=== PATIENT | female | born 1975 | race American Indian/Alaskan Native ===

== ENCOUNTER 2016-06-22 10:18 | Outpatient (CLI) | payer OTHER ==
--- NOTE | 2016-06-23 16:55 | Mammography Report ---
BILATERAL DIGITAL SCREENING MAMMOGRAM WITH CAD:06/22/16 CLINICAL: Baseline screening. FINDINGS: The breasts are heterogeneously dense, which may obscure small masses and limit the sensitivity of mammography.No mass, architectural distortion or suspicious calcifications. IMPRESSION: No mammographic evidence of malignancy. BI-RADS CATEGORY: 1 -- Negative RECOMMENDATION: Routine mammographic screening in one year. ACR BI-RADS MAMMOGRAPHIC CODES: 0 = Needs additional imaging evaluation; 1 = Negative; 2 = Benign; 3 = Probably benign; 4 = Suspicious; 5 = Malignant; 6 = Known biopsy-proven malignancy COMMENT: 1. Dense breast tissue, i.e., adenosis, fibrocystic changes, etc., may obscure an underlying neoplasm. 2. Approximately 10% of cancers are not detected with mammography. 3. A negative mammography report should not delay biopsy if a clinically suspicious mass is present.
== END 2016-06-22 10:19 | disposition home or self-care (01) ==
LOC: SPVWC 10:18
PROVIDERS: ATTEND Family Medicine
DX: Z12.31 Encounter for screening mammogram for malignant neoplasm of breast (principal)
CPT/HCPCS: 77067; G0202

== ENCOUNTER 2020-11-04 07:30 | Inpatient (IN) | payer OTHER, MEDICAID ==
[2020-11-12] MEDS ORDERED: METOCLOPRAMIDE 10 MG/2 ML INJ IV ONE (01:54)
[2020-11-12] MEDS ORDERED: FAMOTIDINE 20 MG/2 ML INJ IV ONE ×2 (01:54→07:20)
[2020-11-12] MEDS ORDERED: BICITRA ORAL LIQD 30ML PO ONE (01:54)
[2020-11-12] MEDS ORDERED: LACTATED RINGERS 1,000 ML IV SCH (02:00)
[2020-11-12] MEDS ORDERED: OXYTOCIN DRIP 30 UNITS/500 ML BAG IV SCH ×2 (03:00→11:26)
[2020-11-12] MEDS ORDERED: ceFAZolin/Water 2 GM/20 ML 2 GM/20 ML SYRINGE IV NR (03:00)
[2020-11-12] MEDS ORDERED: LACTATED RINGERS 1,000 ML ONE (06:39)
[2020-11-12 06:46] LABS: Basophils % (Auto) 0.5 % (0.0-1.8); Eosinophils % (Auto) 0.3 % (0.0-4.3); Hemoglobin 11.5 gm/dl (10.1-14.3); Lymphocytes % (Auto) 20.1 % (13.4-35.0); Mean Corpuscular HGB Conc 32 % (30-34); Mean Corpuscular Volume 79 fl (79-97); Monocytes # (Auto) 0.9 K/mm3 (0.0-0.8); Monocytes % (Auto) 8.6 % (0.0-7.3); Platelet Count 222 K/mm3 (140-440); Red Blood Count 4.53 M/mm3 (3.65-5.03); Red Cell Distribution Width 16.2 % (13.2-15.2)
--- NOTE | 2020-11-12 07:15 | Anesthesia Day of Surgery ---
Anesthesia Day of Surgery - Day of Surgery Patient Examined: Yes Patient H&P Reviewed: Yes Patient is NPO: Yes Beta Blockers: No Cardiac Clearance: No Pulmonary Clearance: No Osbaldo's Test: N/A
[2020-11-12] MEDS ORDERED: ONDANSETRON 4 MG/2 ML INJ IV PRN (07:18)
[2020-11-12] MEDS ORDERED: NALOXONE 0.4 MG/1 ML INJ IV PRN ×2 (07:18→11:26)
[2020-11-12] MEDS ORDERED: HYDROmorphone 1 MG/1 ML INJ IV PRN (07:18)
--- NOTE | 2020-11-12 07:18 | Anesthesia Consultation ---
Anesthesia Consult and Med Hx Date of service: 11/12/20 - Airway Anesthetic Teeth Evaluation: Good ROM Head & Neck: Adequate Mental/Hyoid Distance: Adequate Mallampati Class: Class III Intubation Access Assessment: Good - Pulmonary Exam CTA: Yes - Cardiac Exam Cardiac Exam: RRR - Pre-Operative Health Status ASA Pre-Surgery Classification: ASA3 Proposed Anesthetic Plan: Spinal - Pre-Anesthesia Comment Pre-Anesthesia Comments: C/S X 2, NO ANESTHESIA COMPLICATIONS - Pulmonary Hx Smoking: No Hx Asthma: No Hx Respiratory Symptoms: No SOB: No COPD: No Home Oxygen Therapy: No Hx Pneumonia: No Hx Sleep Apnea: No - Cardiovascular System Hx Hypertension: No Hx Coronary Artery Disease: No Hx Heart Attack/AMI: No Hx Angina: No Hx Percutaneous Transluminal Coronary Angioplasty (PTCA): No Hx Cardia Arrhythmia: No Hx Pacemaker: No Hx Internal Defibrillator: No Hx Valvular Heart Disease: No Hx Heart Murmur: No Hx Peripheral Vascular Disease: No - Central Nervous System Hx Neuromuscular Disorder: Yes (Migraine treated with Motrin PRN) Hx Seizures: No CVA: No Hx Back Pain: No Hx Psychiatric Problems: No - Gastrointestinal Hx Ulcer: No Hx Gastroesophageal Reflux Disease: Yes - Endocrine Hx Renal Disease: No Hx End Stage Renal Disease: No Hx Cirrhosis: No Hx Liver Disease: No Hx Insulin Dependent Diabetes: No Hx Non-Insulin Dependent Diabetes: No Hx Thyroid Disease: No Hx Hypothyroidism: No Hx Hyperthyroidism: No - Hematic Hx Anemia: No Hx Sickle Cell Disease: No - Other Systems Hx Alcohol Use: No Hx Substance Use: No Hx Cancer: No Hx Obesity: Yes
[2020-11-12] MEDS ORDERED: BICITRA ORAL LIQD 30ML ONE (07:19)
[2020-11-12] MEDS ORDERED: METOCLOPRAMIDE 10 MG/2 ML INJ ONE (07:20)
[2020-11-12] MEDS ORDERED: BUPIVACAINE /DEX-WATER 0.75% (2 ML) AMPULE INFILTRATI ONE (07:24)
[2020-11-12] MEDS ORDERED: ONDANSETRON 4 MG/2 ML INJ ONE (08:00)
[2020-11-12] MEDS ORDERED: PHENYLEPHRINE/NS 1,000 MCG/10 ML SYRINGE (OR USE) IV ONE (08:00)
[2020-11-12] MEDS ORDERED: SODIUM CHLORIDE 0.9% IRR 1,500 ML BOTTLE IR ONE (08:04)
[2020-11-12] MEDS ORDERED: WATER FOR IRRIG STERILE 1,500 ML BOTTLE IR ONE (08:04)
[2020-11-12] MEDS ORDERED: ceFAZolin/STERILE WATER 2 GM/20 ML SYRINGE IV ONE ×2 (08:04→08:18)
[2020-11-12] MEDS ORDERED: BUPIVACAINE/PF (0.25%) 2.5 MG/ML 30 ML VIAL INFILTRATI ONE ×2 (08:51)
--- NOTE | 2020-11-12 09:45 | Operative Report ---
Operative Report Operative Report: Preoperative diagnosis: Intrauterine at 39 weeks 2. Previous x 2 3. Multiple uterine fibroids 4. Undesired fertility Postoperative diagnosis: Same with Procedure: Repeat low transverse section, Bilateral tubal ligation Surgeon: Dr. Sabi Ventura EBL: 700cc Urine output: 200 mL IV fluids: mL Findings: Viable male in the vertex Weight 7 lbs. 1 oz. 3682 g Apgars 8 and 9. Otherwise normal pelvic anatomy Specimens: Portion of right and left fallopian tube Complications: None Procedure: The patient was admitted to the OR with IV running and in place. She was properly identified as herself. She was given spinal anesthesia in the OR without difficulty. She was placed in the dorsal supine position with a leftward tilt. A Barber catheter was inserted. She was then prepped and draped in the normal sterile fashion. An Allis test was used to confirm adequate anesthesia. Once confirmed, the incision was made with the scalpel and carried to the underlying fascia using the scalpel and the Bovie. The fascia was incised in the midline and incision was extended bilaterally using the curved Avila scissors. The fascia was then dissected from the underlying rectus muscles in a series of sharp and blunt dissection using the Avila scissors. Muscles were in the in the midline sharply using Metzenbaum scissors and the peritoneum was entered into bluntly using the surgeon's fingers. A bladder blade was then placed into the incision to protect the bladder. Following this the bladder flap was created. Hysterotomy incision was then made in the scalpel. Upon uterine entry, the amniotic sac was ruptured for clear fluid. The was then delivered without difficulty.. His mouth and nose were suctioned on the field. The cord was clamped and cut and he was handed to the waiting NICU personnel. The uterus was then exteriorized and cleared of all clots and debris. The hysterotomy incision was then closed in a running locked fashion using 0 Vicryl. The abdomen was then copiously irrigated with warm normal saline. Attention was turned the the fallopian tubes. Each tube was identified and followed out the the fimbriated end. Each tube was grasped in the midportion and ligated in the [place] style Tubal ligation. Following this the uterus was replaced into the abdominal cavity. At this point the muscles were reapproximated in the midline using individual sutures of 0 Vicryl. Following this the fascia was closed in a running fashion using 0 Vicryl. Tissue was then copiously irrigated. Retention sutures were placed in the subcutaneous fat tissue Skin was closed in a running fashion using 3-0 Monocryl. The sponge lap needle and instrument counts were correct 2. The patient tolerated the procedure well. She was taken to recovery in stable condition.
--- NOTE | 2020-11-12 09:45 | History and Physical Report ---
History of Present Illness Date of examination: 11/12/20 Date of admission: 11/12/20 05:42 Chief complaint: I am here for my History of present illness: Patient is a 45-year-old 4 para 2 who presents for elective repeat section at term. Her course has been complicated by advanced maternal age and multiple uterine fibroids. Also requesting a tubal ligation. All labs have been normal to this point. She is GBS negative. Past History Past Medical History: no pertinent history Past Surgical History: section Social history: - Obstetrical History Expected Date of Delivery: 12/03/20 Actual Gestation: 40 Week(s) 1 Day(s) : 3 Number of Living Children: 2 Medications and Allergies Allergies Allergy/AdvReac Type Severity Reaction Status Date / Time No Known Allergies Allergy Unverified 11/12/20 06:36 Home Medications Medication Instructions Recorded Confirmed Last Taken Type Docusate Sodium [Colace] 100 mg PO BID #60 capsule 11/12/20 Unknown Rx Ibuprofen [Motrin] 800 mg PO Q8HR PRN #40 tablet 11/12/20 Unknown Rx oxyCODONE /ACETAMINOPHEN [Percocet 2 tab PO Q6HR PRN #40 tablet 11/12/20 Unknown Rx 5/325] Active Meds: Active Medications Hydromorphone HCl (Hydromorphone 1 Mg/1 Ml Inj) 0.5 mg IV Q5M PRN PRN Reason: BREAK Stop: 11/12/20 23:00 Lactated Ringer's (Lactated Ringers) 1,000 mls @ 2,250 mls/hr IV PREOP CANDIDO Stop: 11/13/20 02:27 Last Admin: 11/12/20 07:23 Dose: 2,250 mls/hr Documented by: Oxytocin/Sodium Chloride (Pitocin/Ns 30 Unit/500ml) 30 units in 500 mls @ 0 mls/hr IV TITR CANDIDO; Protocol Cefazolin Sodium (Ancef/Sterile Water 2 Gm/20 Ml) 2 gm in 20 mls @ 80 mls/hr IV PREOP NR; Protocol Stop: 11/12/20 23:45 Naloxone HCl (Naloxone 0.4 Mg/1 Ml Inj) 0.2 mg IV Q2MIN PRN PRN Reason: Res Rate </= 8 or 02 SAT < 92% Ondansetron HCl (Ondansetron 4 Mg/2 Ml Inj) 4 mg IV Q8H PRN PRN Reason: Nausea And Vomiting Review of Systems All systems: negative Gastrointestinal: abdominal pain - Vital Signs Vital signs: Vital Signs Temp Pulse Resp BP Pulse Ox 98.4 F 87 16 122/73 100 11/12/20 06:44 11/12/20 06:44 11/12/20 06:44 11/12/20 06:44 11/12/20 06:44 Temp Pulse Resp BP Pulse Ox 98.4 F 90 16 122/73 100 11/12/20 06:44 11/12/20 07:45 11/12/20 06:44 11/12/20 06:49 11/12/20 07:45 - Physical Exam Breasts: Positive: deferred Cardiovascular: Regular rate, Normal S1, Normal S2 Lungs: Positive: Clear to auscultation, Normal air movement Abdomen: Positive: normal appearance, soft, normal bowel sounds. Negative: distention, tenderness Genitourinary (Female): Positive: normal external genitalia, normal perenium Vulva: both: normal Vagina: Positive: normal moisture. Negative: discharge Cervix: Negative: lesion, discharge Uterus: Positive: normal size, enlarged, nodular Adnexa: both: normal Anus/Rectum: Positive: normal perianal skin, heme negative. Negative: rectal mass, hemorrhoids Extremities: Deep Tendon Reflex Grade: Normal +2 - Obstetrical FHR: auscultation normal Results Result Diagrams: 11/12/20 23:34 Abnormal lab results 11/12/20 Range/Units 06:28 MCH 25 L (28-32) pg RDW 16.2 H (13.2-15.2) % [place] % (Auto) 8.6 H (0.0-7.3) % [place] # (Auto) 0.9 H (0.0-0.8) K/mm3 Seg Neutrophils % 70.5 H (40.0-70.0) % All other labs normal. Assessment and Plan IUP at 38 weeks here for elective repeat and tubal ligation. All consents have been signed and placed on the chart. Proceed with surgery as planned.
--- NOTE | 2020-11-12 09:46 | Procedure Note ---
OB Delivery Note - Delivery Date of Delivery: 11/12/20 Surgeon: JOHN LEW Estimated blood loss: other (600) - Section Preop diagnosis: repeat , desires sterilization Postop diagnosis: same (With multiple uterine fibroids) section procedure: section, repeat low transverse, bilateral tubal ligation Disposition: PACU Complications: none Narrative: See op report - Infant A at 1 minute: 8 at 5 minutes: 9 Infant Gender: Male (7 pounds 6 ounces)
[2020-11-12] MEDS ORDERED: METHYLERGONOVINE MALEATE 0.2 MG/ML VIAL IM SCH (10:00)
[2020-11-12] MEDS ORDERED: METHYLERGONOVINE MALEATE 0.2 MG/ML VIAL IM ONE (10:11)
[2020-11-12] MEDS ORDERED: WITCH HAZEL/ GLYCERIN PAD TP PRN (11:26)
[2020-11-12] MEDS ORDERED: LANOLIN/ZINC/DIMETHICONE (LANSINOH) 7 GM TP PRN (11:26)
[2020-11-12] MEDS ORDERED: D5W/LACTATED RINGERS 1,000 ML IV SCH (11:26)
[2020-11-12] MEDS: MORPHINE 4 MG/1 ML INJ IV PRN ×2 (13:10→20:10)
[2020-11-12] MEDS: FERROUS SULFATE 325 MG TAB PO SCH (13:11)
--- NOTE | 2020-11-12 16:30 | Progress Note ---
Spinal Anesthesia Block - Spinal Anesthesia Block Start Time: 08:00 Stop Time: 08:04 Performed by:: RUDY CONTRERAS Procedure: Patient IDed, H&P reviewed, all questions and concerns were answered, and consent was signed. Timeout was performed at bedside. Patient in sitting position. Sterile prep and drape was performed. [3] ml of 1% lidocaine skin wheal at L[3]- L [4]. Needle introducer advanced. 25 gauge spinal needle advanced. Clear, free flowing CSF. negative blood, negative paresthesia. Spinal dose given. All needles removed. Patient tolerated procedure.
--- NOTE | 2020-11-12 16:33 | Progress Note ---
Regional Anesthesia Block - Regional Anesthesia Block Start Time: 08:50 Stop Time: 08:58 Performed By:: RUDY CONTRERAS Procedure: Patient consented for TAP block for post surgical pain management. Patient identified, monitors placed, and time out performed. TAP identified bilaterally via ultrasound. Skin prepped bilaterally with [chlorhexidine] and [22g stimuplex] needle advanced to the TAP. [Marcaine 0.22% 20ml] injected under ultrasound guidance on the [left] side. [Marcaine 0.22% 20ml] injected under ultrasound guidance on the [right] side. Negative aspiration every 5mL, No change in heart rate or rhythm. Patient tolerated the procedure well. No apparent complications seen
--- NOTE | 2020-11-12 16:46 | Post Anesthesia Evaluation ---
- Post Anesthesia Evaluation Patient Participated: Yes Airway Patent: Yes Stable Respiratory Function: Yes Nausea/Vomiting: No Temp > 96.8F: Yes Pain Manageable: Yes Adequeate Hydration: Yes Anesthesia Complications: No Block Receding Appropriately: Yes Patient on Ventilator: No
[2020-11-12] MEDS: IBUPROFEN 800 MG TAB PO PRN (23:43)
[2020-11-12 23:45] LABS: Hematocrit 31.1 % (30.3-42.9); Hemoglobin 10.1 gm/dl (10.1-14.3)
[2020-11-13] MEDS: IBUPROFEN 800 MG TAB PO PRN ×2 (05:11→11:50)
[2020-11-13] MEDS: oxyCODONE /ACETAMINOPHEN 5-325MG TAB PO PRN ×2 (09:25→18:07)
[2020-11-13] MEDS: FERROUS SULFATE 325 MG TAB PO SCH (11:51)
--- NOTE | 2020-11-13 17:11 | Progress Note ---
Assessment and Plan POD 1 /p rltcs. Doing well. Continue routine care. Encourage ambulation. Subjective - Subjective Date of service: 11/13/20 Interval history: POD 1 s/p ltcs and btl. DOing well. Patient reports: appetite normal, voiding normally, pain well controlled, ambulating normally : doing well Objective - Vital Signs Latest vital signs: Vital Signs Temp Pulse Resp BP BP Pulse Ox 11/13/20 08:00 98.2 F 83 14 119/65 11/13/20 05:07 98.5 F 92 H 20 118/67 96 11/13/20 01:05 98.7 F 100 H 18 136/80 96 11/12/20 21:10 99.1 F 92 H 18 132/78 97 Intake and Output 11/13/20 11/13/20 11/13/20 06:59 14:59 22:59 Intake Total 120 Output Total 400 Balance -280 Intake: Oral 120 Output: Urine 400 Void 400 Other: Total, Intake Amount 120 Total, Output Amount 400 # Voids Void 1 - Exam Breasts: Present: deferred Cardiovascular: Present: Regular rate, Normal S1, Normal S2 Lungs: Present: Clear to auscultation, Normal air movement Abdomen: Present: normal appearance, soft, normal bowel sounds Uterus: Present: normal, firm, fundal height above umbilicus (fibroid uterus) Extremities: Present: normal
[2020-11-14] MEDS: oxyCODONE /ACETAMINOPHEN 5-325MG TAB PO PRN ×3 (02:49→17:14)
[2020-11-14] MEDS: FERROUS SULFATE 325 MG TAB PO SCH (10:24)
--- NOTE | 2020-11-14 11:16 | Progress Note ---
Assessment and Plan A: POD#2 s/p repeat and tubal ligation at term Delayed return of bowel function AMA P: Begin bowel regimen Closely monitor clinical status Subjective - Subjective Date of service: 11/14/20 Principal diagnosis: s/p repeat and BTL at term, Interval history: Pt passing minimal flatus and reports pain presently. Patient reports: appetite normal, voiding normally, flatus (minimal ), pain poorly controlled, ambulating normally, no bowel movement : doing well Objective - Vital Signs Latest vital signs: Vital Signs Temp Pulse Resp BP BP Pulse Ox 11/14/20 07:25 97.8 F 85 18 141/77 98 11/14/20 02:49 18 11/14/20 01:13 97.9 F 98 H 20 131/70 97 Intake and Output 11/13/20 11/14/20 11/14/20 22:59 06:59 14:59 Intake Total 200 480 Balance 200 480 Intake: Oral 200 120 Intake, Free Water 360 Other: Total, Intake Amount 200 120 # Voids Void 2 1 - Exam Breasts: Present: deferred Abdomen: Present: soft, distention (moderate; tympanic ) Uterus: Present: fundal height at umbilicus Extremities: Present: edema (trace ) Incision: Present: intact (with felice )
[2020-11-14] MEDS: LACTULOSE 20 GM/30 ML ORAL LIQD PO SCH ×2 (12:44→21:48)
[2020-11-15] MEDS: oxyCODONE /ACETAMINOPHEN 5-325MG TAB PO PRN ×2 (00:47→06:27)
[2020-11-15] MEDS: LACTULOSE 20 GM/30 ML ORAL LIQD PO SCH (06:19)
[2020-11-15] MEDS: FERROUS SULFATE 325 MG TAB PO SCH (09:05)
[2020-11-15 09:53] VITALS: BP 124/64
--- NOTE | 2020-11-15 11:55 | Progress Note ---
Assessment and Plan A: POD#3 s/p repeat and tubal ligation at term AMA P: Routine postop care Discharge today with follow up in 1 week for staple removal Subjective - Subjective Date of service: 11/15/20 Principal diagnosis: s/p repeat and BTL at term, Interval history: Pt feels much better, is passing more flatus and asks to go home. She notes that after her last section, she did not have a bowel m ovement until she went home 4 days after surgery. Patient reports: appetite normal, voiding normally, pain well controlled, flatus, ambulating normally, no bowel movement : doing well Objective - Vital Signs Latest vital signs: Vital Signs Temp Pulse Resp BP BP Pulse Ox 11/15/20 09:00 97.8 F 84 18 124/64 98 11/15/20 06:27 18 11/15/20 01:18 98.6 F 74 20 137/75 100 11/15/20 00:47 18 11/14/20 17:00 97.9 F 92 H 18 137/76 99 Intake and Output 11/14/20 11/15/20 11/15/20 22:59 06:59 14:59 Intake Total 200 560 Balance 200 560 Intake: Oral 200 200 Intake, Free Water 360 Other: Total, Intake Amount 200 200 # Voids Void 3 1 # Bowel Movements 1 - Exam Breasts: Present: deferred Abdomen: Present: soft (obese ), distention (mild ) Uterus: Present: fundal height at umbilicus Extremities: Present: edema (trace ) Incision: Present: intact (with felice )
--- NOTE | 2020-11-15 11:55 | Discharge Summary ---
Providers - Providers Date of Admission: 11/12/20 05:42 Date of discharge: 11/15/20 Attending physician: JOHN LEW Primary care physician: JOHN LEW Hospitalization Reason for admission: section Delivery: Procedure: section, bilateral tubal ligation, repeat low transverse Procedure details: Please see operative report Episiotomy: none Laceration: none Incision: intact (with felice ) Other procedures: none complications: none Discharge diagnosis: IUP at term delivered baby: male Hospital course: This patient was admitted for scheduled repeat section and bilateral tubal ligation which she tolerated well. Her postoperative course was c omplicated by delayed return of bowel function relieved with lactulose. On POD#3 she met discharge criteria. She will follow up in 1 week for staple removal and blood pressure check as she had borderline elevations in blood pressure prior to discharge. Condition at discharge: Stable Disposition: DC-01 TO HOME OR SELFCARE - Discharge Diagnoses (1) Term of male Status: Acute (2) S/P section Status: Acute (3) Advanced maternal age (AMA), 40 years or greater Status: Acute (4) Obesity (BMI 30.0-34.9) Status: Acute Plan - Discharge Medications Prescriptions: Docusate Sodium [Colace] 100 mg PO BID #60 capsule Ibuprofen [Motrin] 800 mg PO Q8HR PRN #40 tablet PRN Reason: Pain, Mild (1-3) oxyCODONE /ACETAMINOPHEN [Percocet 5/325] 2 tab PO Q6HR PRN #40 tablet PRN Reason: Pain - Provider Discharge Summary Activity: routine, no sex for 6 weeks, no heavy lifting 4 weeks, no strenuous exercise Diet: routine Instructions: routine Additional instructions: [] Smoking cessation referral if applicable(refer to patient education folder for contact #) [] Refer to [facility]'s [facility] Booklet Call your doctor immediately for: * Fever > 100.5 * Heavy vaginal bleeding ( >1 pad per hour) * Severe persistent headache * Shortness of breath * Reddened, hot, painful area to leg or breast * Drainage or odor from incision. * Keep incision clean and dry at all times and follow doctor's instructions regarding bathing/showering - Follow up plan Follow up: JOHN LEW MD [Primary Care Provider] - 7 Days (Please schedule your appt for staple removal Please schedule your son's circumcision before he is one month old. )
[2020-11-15] MEDS: IBUPROFEN 800 MG TAB PO PRN (13:59)
== END 2020-11-15 18:49 | disposition home or self-care (01) | DRG 784 ==
LOC: APU 11-12 05:42 → OB 11-12 11:07
PROVIDERS: ADMIT Obstetrics & Gynecology; ATTEND Obstetrics & Gynecology
PROC: 10D00Z1 Extraction of Products of Conception, Low, Open Approach (ICD-10-PCS; principal; 2020-11-12)
PROC: 0UB70ZZ Excision of Bilateral Fallopian Tubes, Open Approach (ICD-10-PCS; 2020-11-12)
DX: O34.211 Maternal care for low transverse scar from previous cesarean delivery (principal); O99.354 Diseases of the nervous system complicating childbirth; O99.214 Obesity complicating childbirth; Z20.822 Contact with and (suspected) exposure to COVID-19; E66.9 Obesity, unspecified; O34.13 Maternal care for benign tumor of corpus uteri, third trimester; D25.9 Leiomyoma of uterus, unspecified; G43.909 Migraine, unspecified, not intractable, without status migrainosus; O99.62 Diseases of the digestive system complicating childbirth; K21.9 Gastro-esophageal reflux disease without esophagitis; Z3A.38 38 weeks gestation of pregnancy; Z37.0 Single live birth; Z30.2 Encounter for sterilization
CPT/HCPCS: 36415; 85014; 85018; 85025; 86850; 86900; 86901; 88302; 99211; G0378; G0463; J0690; J2210; J2270; J2370; J2405; J2765; J3490; J7120; J7121; U0003